=== PATIENT | male | born 2000 | race Caucasian/White ===

== ENCOUNTER → 2018-03-23 | Outpatient (CLI) | payer OTHER ==
--- NOTE | 2018-03-23 11:57 | XR ---
EXAMINATION TYPE: XR wrist complete LT DATE OF EXAM: 03/23/2018 CLINICAL HISTORY: pain TECHNIQUE: Frontal, lateral and oblique images of the left wrist are obtained. COMPARISON: None. FINDINGS: There is no acute fracture/dislocation evident. The joint spaces appear within normal nguyễn its. The overlying soft tissue appears unremarkable. IMPRESSION: There is no acute fracture or dislocation seen. ICD 10 NO FRACTURE, INITIAL EVALUATION
== END | disposition home or self-care (01) ==
LOC: RADXRMAIN 11:33
PROVIDERS: ATTEND Emergency Medicine
DX: S63.502A Unspecified sprain of left wrist, initial encounter (principal)

== ENCOUNTER → 2021-09-08 | Outpatient (CLI) | payer BC ==
--- NOTE | 2021-09-08 08:28 | CT ---
EXAMINATION TYPE: CT sinus wo con DATE OF EXAM: 09/08/2021 COMPARISON: None available HISTORY: chronic sinusitis CT DLP: 654.8 mGycm. Automated Exposure Control for Dose Reduction was Utilized. TECHNIQUE: CT scan of the sinuses is performed without contrast, axial images are obtained, coronal r eformatted images are also reviewed. FINDINGS: Rather central bony nasal septum. Unremarkable middle and inferior turbinates. Minimal mucosal thicke alin of the anterior aspect of the nasal fossa bilaterally. Slightly obstructed left infundibulum by minimal mucosal thickening. Patent right infundibulum. Clear ostiomeatal complex bilaterally. Minimal mucosal thickening of the alveolar recesses of the maxillary sinuses. Minimal mucosal thicken ing of the anterior aspect of the right sphenoid sinus compartment. Clear frontal sinus and ethmoid a ir cells. Slight narrowing of the sphenoethmoidal recesses. Clear mastoid air cells. Focal bony defect is seen along the inferior aspect of the right lamina danilo racea measuring 10 mm and containing orbital fat. Grossly unremarkable orbits otherwise. IMPRESSION: Minimal mucosal thickening of the maxillary sinuses and right sphenoid sinus compartment as described above, please correlate clinically. Other incidental findings as described above.
== END | disposition home or self-care (01) ==
LOC: RADCTMAIN 06:51
PROVIDERS: ATTEND Otolaryngology
DX: J34.89 Other specified disorders of nose and nasal sinuses (principal)
CPT/HCPCS: 70486